=== PATIENT | male | born 1975 | race Caucasian/White ===

== ENCOUNTER 2016-10-02 14:49 | Emergency (ER) | payer MEDICARE ==
[~2016-10-02] VITALS: Ht 175.3 cm; Wt 83.2 kg
[~2016-10-02 14:49] MED LIST: NAPROSYN500 MG PO; PERCOCET 10/1 TABLET PO; PREDNISONE10 M1 PO; VALIUM5 MG PO
[2016-10-02] MEDS ORDERED: OLANZAPINE PO (15:05)
[2016-10-02] MEDS ORDERED: OXYCODONE PO (15:05)
[2016-10-02] MEDS ORDERED: QUETIAPINE FUMARATE PO (15:06)
[2016-10-02] MEDS ORDERED: PREDNISONE20 MG PO (15:57)
[2016-10-02] MEDS ORDERED: FLEXERIL10 MG PO (15:57)
[2016-10-02 16:07] VITALS: BP 128/84
== END 2016-10-02 16:09 | disposition home or self-care (01) ==
LOC: EME 14:49 → RME 14:49
DX: M54.5 Low back pain (principal); X50.9XXA Other and unspecified overexertion or strenuous movements or postures, initial encounter; Y99.0 Civilian activity done for income or pay
CPT/HCPCS: 72100; 99281; 99284; J1885; J3360; J7512

== ENCOUNTER 2017-10-02 17:44 | Emergency (ER) | payer SELFPAY ==
[~2017-10-02] VITALS: Ht 172.7 cm; Wt 81.6 kg
[~2017-10-02 17:44] MED LIST changes: +FLEXERIL10 MG PO; +OLANZAPINE PO; +OXYCODONE PO; +PREDNISONE20 MG PO; +QUETIAPINE FUMARATE PO
[2017-10-02 19:24] LABS: HEMATOCRIT 43.3 % (38.0-50.0); HEMOGLOBIN 15.7 G/DL (12.5-16.6); MCH 30.1 PG (29.0-34.0); MCHC 36.3 G/DL (30.0-36.0); PLATELET COUNT 222 K/uL (156-360); RBC DIS.WIDTH-CV 12.1 % (11.8-14.6); RBC DIS.WIDTH-SD 36.9 % (39-53); RED BLOOD COUNT 5.22 M/uL (4.00-5.50); WHITE BLOOD COUNT 7.2 K/uL (4.1-10.2)
[2017-10-02 19:34] LABS: ALBUMIN 4.5 g/dL (3.2-4.8); CHLORIDE 107 mEq/L (99-109); SODIUM 141 mEq/L (136-147)
[2017-10-02 19:36] LABS: GLUCOSE 107 mg/dL (70-99); TOTAL PROTEIN 7.7 g/dL (6.4-8.3)
[2017-10-02 19:38] LABS: TOTAL BILIRUBIN 0.6 mg/dL (0.0-1.0)
[2017-10-02 19:39] LABS: SERUM ETHYL ALCOHOL < 10 mg/dL
[2017-10-02 19:40] LABS: ALKALINE PHOSPHATASE 84 IU/L (3-129); CREATININE 0.9 mg/dL (0.6-1.3); GFR ESTIMATE (CALCULATED) > 59 mL/min/ (58.99-99999)
[2017-10-02 19:41] LABS: AST (GOT) 34 IU/L (2-34); UREA NITROGEN (BUN) 13 mg/dL (9-23)
[2017-10-02 19:43] LABS: ALT (GPT) 43 IU/L (3-49); LIPASE 22 U/L (1.0-51.0)
[2017-10-02] MEDS ORDERED: NAPROSYN500 MG PO (21:37)
[2017-10-02] MEDS ORDERED: FLEXERIL10 MG PO (21:37)
[2017-10-02 21:49] VITALS: BP 117/82
== END 2017-10-02 21:51 | disposition home or self-care (01) ==
LOC: EME 17:44
PROVIDERS: Emergency Medicine
DX: S20.211A Contusion of right front wall of thorax, initial encounter (principal); S20.229A Contusion of unspecified back wall of thorax, initial encounter; V86.55XA Driver of 3- or 4- wheeled all-terrain vehicle (ATV) injured in nontraffic accident, initial encounter; Z89.511 Acquired absence of right leg below knee; Z88.0 Allergy status to penicillin; Z88.5 Allergy status to narcotic agent
CPT/HCPCS: 70450; 71260; 72125; 72129; 72132; 74177; 80053; 81003; 83605; 83690; 85027; 99281; 99285; G0480; J3010; J7030